=== PATIENT | female | born 1985 | race Caucasian/White ===

== ENCOUNTER 2021-03-05 08:16 | Emergency (ER) | payer MEDICAID ==
[~2021-03-05] VITALS: Ht 167.6 cm; Wt 140.0 kg
[2021-03-05] MEDS ORDERED: cefTRIAXone IM 1 GM VIAL IM ONE (08:28)
[2021-03-05] MEDS ORDERED: METRONIDAZOLE 500 MG IV ONE (08:28)
[2021-03-05] MEDS ORDERED: IV NORMAL SALINE 1000ML BAG 1,000 ML IV ONE (08:30)
[2021-03-05 10:47] VITALS: BP 111/56
[2021-03-05 11:19] LABS: BASO % 1 % (0-3); EOS # 0.1 x10^3/uL (0.0-0.7); EOS % 1 % (0-3); HEMATOCRIT 38.7 % (36.0-47.0); HEMOGLOBIN 13.2 g/dL (12.0-15.5); LYMPH # 1.7 x10^3/uL (1.0-4.8); LYMPH % 19 % (24-48); MEAN CORPUSCULAR HEMOGLOBIN 30 pg (25-35); MEAN CORPUSCULAR HGB CONC 34 g/dL (31-37); MEAN CORPUSCULAR VOLUME 86 fL (79-100); MONO # 0.6 x10^3/uL (0.0-1.1); MONO % 6 % (0-9); NEUT # 6.8 x10^3/uL (1.8-7.7); NEUT % 74 % (31-73); PLATELET COUNT 229 x10^3/uL (140-400); RED BLOOD COUNT 4.48 x10^6/uL (3.50-5.40); WHITE BLOOD COUNT 9.2 x10^3/uL (4.0-11.0)
[2021-03-05 11:28] LABS: CREATININE 0.7 mg/dL (0.6-1.0); GFR 95.8; POTASSIUM 3.8 mmol/L (3.5-5.1)
[2021-03-05] MEDS ORDERED: KETOROLAC 30 MG/ML VIAL. IVP ONE (11:30)
[2021-03-05 11:34] LABS: ALBUMIN 3.7 g/dL (3.4-5.0); ALBUMIN/GLOBULIN RATIO 0.9 (1.0-1.7); TOTAL BILIRUBIN 0.9 mg/dL (0.2-1.0); TOTAL PROTEIN 7.6 g/dL (6.4-8.2)
[2021-03-05 11:36] LABS: BILIRUBIN,URINE NEGATIVE (NEG); CLARITY,URINE CLEAR; COLOR,URINE YELLOW; NITRITE,URINE NEGATIVE (NEG); PH,URINE 7.5 (<5.0-8.0); PROTEIN,URINE NEGATIVE (NEG-TRACE); UROBILINOGEN,URINE 0.2 mg/dL (0.2 mg/dL)
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
[2021-03-05 11:42] LABS: BARBITURATES NEG (NEG); BENZODIAZEPINES NEG (NEG); CANNABINOIDS NEG (NEG); COCAINE POS (NEG); METHADONE NEG (NEG); OPIATES POS (NEG); PHENCYCLIDINE NEG (NEG)
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
[2021-03-05] MEDS ORDERED: IOHEXOL 300 MG/ML 100ML VIAL. IV ONE (11:45)
[2021-03-05] MEDS ORDERED: CONTRAST GIVEN. MC PRN (11:45)
[2021-03-05 11:46] LABS: RBC,URINE 0 /HPF (0-2)
[2021-03-05 11:47] LABS: BACTERIA,URINE FEW /HPF (0-FEW); WBC,URINE OCC /HPF (0-4)
[2021-03-05 11:58] LABS: AMPHETAMINE/METHAMPHETAMINE POS (NEG)
[2021-03-05] MEDS ORDERED: OXYC15TA PO (12:38)
[2021-03-05] MEDS ORDERED: MORPHINE (12:38)
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
== END 2021-03-05 13:50 | disposition left against medical advice (07) ==
LOC: ER 08:16
DX: R51.9 Headache, unspecified (principal); M54.2 Cervicalgia; R07.81 Pleurodynia; M54.50 Low back pain, unspecified; M79.671 Pain in right foot; R10.30 Lower abdominal pain, unspecified; M79.661 Pain in right lower leg; G89.11 Acute pain due to trauma; V49.49XA Driver injured in collision with other motor vehicles in traffic accident, initial encounter; Y93.89 Activity, other specified; Y92.488 Other paved roadways as the place of occurrence of the external cause; Y99.8 Other external cause status
CPT/HCPCS: 36415; 70450; 71045; 71260; 72125; 73590; 73630; 74177; 80053; 80307; 81001; 81025; 84484; 85025; 96361; 96374; 99285; J1885; J7030; Q9967